=== PATIENT | male | born 1970 | race Caucasian/White ===

== ENCOUNTER 2017-03-30 17:11 | Emergency (ER) | payer OTHER ==
[~2017-03-30] VITALS: Ht 182.9 cm; Wt 106.6 kg
[~2017-03-30 17:11] MED LIST: ESCI20TA PO
[2017-03-30] MEDS ORDERED: IV NS 0.9% 1,000 ML BAG IV ONE (18:00)
[2017-03-30] MEDS ORDERED: LIDOCAINE VISCOUS 2% UD 15 ML UDC MM ONE (18:00)
[2017-03-30] MEDS ORDERED: MAG HYDROX/AL HYDROX/SIMETH 30 ML UDC PO ONE (18:00)
[2017-03-30] MEDS ORDERED: ONDANSETRON HCL/PF 4 MG/2 ML VIAL IVP ONE (18:00)
[2017-03-30] MEDS ORDERED: ONDANSETRON HCL/PF 4 MG/2 ML VIAL ONE (18:02)
[2017-03-30] MEDS ORDERED: LIDOCAINE VISCOUS 2% UD 15 ML UDC ONE (18:02)
[2017-03-30] MEDS ORDERED: MAG HYDROX/AL HYDROX/SIMETH 30 ML UDC ONE (18:02)
[2017-03-30 18:14] LABS: BASOPHILS # (AUTO) 0.1 /CMM (0.0-0.2); BASOPHILS % (AUTO) 0.7 % (0.0-2.0); EOSINOPHILS # (AUTO) 0.4 /CMM (0.0-0.7); EOSINOPHILS % (AUTO) 4.3 % (0.0-6.0); HEMATOCRIT 46 % (39-51); LYMPHOCYTES # (AUTO) 2.2 /CMM (0.8-4.8); MEAN CORPUSCULAR HEMOGLOBIN 32 PG (26.0-33.0); MEAN CORPUSCULAR HGB CONC 35 g/dl (31.0-36.0); MEAN CORPUSCULAR VOLUME 91 fL (80-96); MONOCYTES # (AUTO) 0.5 /CMM (0.1-1.30); NEUTROPHILS # (AUTO) 5.8 /CMM (1.8-8.9); PLATELET COUNT (AUTO) 253 /CMM (150-450); RDW COEFFICIENT OF VARIATION 12.3 (11.5-15.0); RED BLOOD CELL COUNT(AUTO) 5.07 MIL/uL (4.5-6.0)
[2017-03-30] MEDS ORDERED: diphenhydrAMINE HCL 50 MG/ML VIAL ONE (18:15)
[2017-03-30 18:19] LABS: CALCIUM, SERUM 8.6 mg/dL (8.5-10.1); CREATININE 1.1 mg/dL (0.6-1.3); POTASSIUM 3.6 mmol/L (3.5-5.1)
[2017-03-30 18:25] LABS: ALBUMIN 4.1 g/dL (3.4-5.0); BILIRUBIN,DIRECT 0.1 mg/dL (0.0-0.2); BILIRUBIN,TOTAL 0.3 mg/dL (0.2-1.0); TOTAL PROTEIN, SERUM 7.1 g/dL (6.4-8.2)
[2017-03-30] MEDS ORDERED: diphenhydrAMINE HCL 50 MG/ML VIAL IV ONE (18:30)
[2017-03-30] MEDS ORDERED: IV NS 0.9% 250 ML IV ONE (18:44)
[2017-03-30] MEDS ORDERED: IOHEXOL-300 100 ML VIAL IV ONE (18:44)
--- NOTE | 2017-03-30 18:52 | NUR ---
URINE SENT TO LAB
--- NOTE | 2017-03-30 18:52 | NUR ---
PT TO CTSCAN
--- NOTE | 2017-03-30 18:56 | NUR ---
SELF PRESENTS TO ED: ABDOMINAL PAIN, NAUSEA, VOMITING, DIZZINESS WEAKNESS, HEADACHE, AWAITING ENDO/COLOO-SCOPY NEXT MONTH, NAD NOTED, VSS, RESP EVEN AND UNLABORED, [id number], WAITING FOR MD EVKEISHA .
[2017-03-30 18:57] LABS: APPEARANCE,URINE Clear (CLEAR); BILIRUBIN,URINE Negative (NEGATIVE); BLOOD, URINE Negative Ery/uL (NEGATIVE); COLOR,URINE Yellow (YELLOW); KETONES,URINE Negative (NEGATIVE); LEUKOCYTE ESTERASE ,URINE Negative (NEGATIVE); NITRITE, URINE Negative (NEGATIVE); PROTEIN,URINE Trace mg/dl (NEGATIVE); UGLUCOSE Negative (NEGATIVE); UROBILINOGEN,URINE 0.2 EU/dL (0.2)
[2017-03-30 19:12] LABS: BACTERIA,URINE Few /HPF (None Seen); MUCUS,URINE Moderate /LPF (None Seen); RBC,URINE 0-2 /HPF (0-2); SQUAMOUS EPITHELIAL CELL,UR Few /HPF (None Seen); WBC,URINE 0-2 /HPF (0-3)
--- NOTE | 2017-03-30 19:19 | NUR ---
RECEIVED REPORT FROM ANGIE CORDOVA FOR GATO.
--- NOTE | 2017-03-30 19:44 | NUR ---
PNEUMATIC TESTER MECHANIC GALINDO AT BEDSIDE SPEAKING TO PT REGARDING RESULTS.
--- NOTE | 2017-03-30 19:52 | NUR ---
IV removed. Catheter intact and site benign. Pressure and 4x4 applied to site. No bleeding noted. Patient discharged to home in stable condition. Written and verbal after care instructions given. Patient verbalizes understanding of instruction. ambulatory with a steady gait .
[2017-03-30 19:54] VITALS: BP 128/68
== END 2017-03-30 19:55 | disposition home or self-care (01) ==
LOC: ER 17:12
DX: K29.60 Other gastritis without bleeding (principal); K57.30 Diverticulosis of large intestine without perforation or abscess without bleeding; F17.210 Nicotine dependence, cigarettes, uncomplicated; Z90.89 Acquired absence of other organs; Z88.0 Allergy status to penicillin; Z88.8 Allergy status to other drugs, medicaments and biological substances
CPT/HCPCS: 36415; 74160; 80048; 80076; 81001; 83690; 85025; 96361; 96374; 96375; 99285; 99406; J1200; J2405; J7030; J7050; Q9967; 81000-TC

== ENCOUNTER 2018-06-18 15:08 | Emergency (ER) | payer OTHER ==
[~2018-06-18] VITALS: Ht 182.9 cm; Wt 102.1 kg
--- NOTE | 2018-06-18 15:30 | NUR ---
PT BIB SELF SENT FROM [facility] LACERATION LEFT MIDDLE FINGER X 2 HRS AGO, PT IS AAOX4, NOT IN RESPIRATORY DISTRESS, V/S STABLE, KEPT RESTED AND COMFORTABLE.
--- NOTE | 2018-06-18 15:45 | NUR ---
SEEN AND EXAMINED BY NATALIYA BUTLER
[2018-06-18] MEDS ORDERED: TDAP [DIPH/PERTUSSIS/TET] 0.5 ML VIAL IM ONE ×2 (15:56→16:00)
[2018-06-18] MEDS ORDERED: LIDOCAINE 1% INJ 50 ML MDV IJ ONE (15:56)
[2018-06-18] MEDS ORDERED: IBUPROFEN 600 MG TABLET PO ONE ×2 (15:56→16:00)
[2018-06-18] MEDS ORDERED: LIDOCAINE HCL/PF 1% 30 ML VIAL TP ONE (16:00)
--- NOTE | 2018-06-18 16:15 | NUR ---
LACERATION SET UP DONE.
--- NOTE | 2018-06-18 16:32 | NUR ---
TECH AT BEDSIDE FOR XRAY.
--- NOTE | 2018-06-18 18:01 | NUR ---
Patient discharged to home in stable condition. Written and verbal after care instructions given. Patient verbalizes understanding of instruction.
--- NOTE | 2018-06-18 18:01 | NUR ---
SUTURING DONE BY NATALIYA BARRON.
[2018-06-18 18:02] VITALS: BP 128/81
== END 2018-06-18 18:03 | disposition home or self-care (01) ==
LOC: ER 15:09
DX: S61.213A Laceration without foreign body of left middle finger without damage to nail, initial encounter (principal); F17.200 Nicotine dependence, unspecified, uncomplicated; Z98.890 Other specified postprocedural states; Z88.0 Allergy status to penicillin; Z88.6 Allergy status to analgesic agent; W26.9XXA Contact with unspecified sharp object(s), initial encounter; Y93.89 Activity, other specified; Y92.89 Other specified places as the place of occurrence of the external cause; Y99.8 Other external cause status
CPT/HCPCS: 73140-TC; 90715; A6403; J3490